=== PATIENT | female | born 1940 | race Caucasian/White ===

== ENCOUNTER → 2017-01-11 | Outpatient (CLI) | payer OTHER | LOC: NM 07:57 | DX: R22.31 Localized swelling, mass and lump, right upper limb (principal); M89.9 Disorder of bone, unspecified; Z85.3 Personal history of malignant neoplasm of breast | CPT/HCPCS: 78306; A9503 ==

== ENCOUNTER → 2017-01-18 | Outpatient (CLI) | payer OTHER | LOC: EMI 01-11 09:00 | DX: M54.5 Low back pain (principal); M51.27 Other intervertebral disc displacement, lumbosacral region; M99.73 Connective tissue and disc stenosis of intervertebral foramina of lumbar region | CPT/HCPCS: 72148 ==

== ENCOUNTER → 2017-01-18 | Outpatient (CLI) | payer OTHER | LOC: OPSV 09:42 → CT 13:00 | DX: Z08 Encounter for follow-up examination after completed treatment for malignant neoplasm (principal); R22.31 Localized swelling, mass and lump, right upper limb; Z85.3 Personal history of malignant neoplasm of breast | CPT/HCPCS: 71260; 74160; 96360; 96361; J7030; J7050; Q9962 ==